=== PATIENT | female | born 1995 | race Two or more races ===

== ENCOUNTER 2023-06-06 07:18 | Inpatient (IN) | payer OTHER ==
[2023-06-06 08:44] LABS: HEMATOCRIT 35.9 % (32.4-45.2); HEMOGLOBIN 12.1 GM/dL (10.7-15.3); MCH 30.6 pg (25.7-33.7); MCHC 33.6 g/dl (32.0-36.0); MEAN CELL VOLUME 91.3 fl (80-96); MEAN PLT VOLUME 8.7 fl (7.5-11.1); PLATELET COUNT 255 10^3/uL (134-434); RBC 3.93 M/mm3 (3.60-5.2); RDW 13.5 % (11.6-15.6); WHITE BLOOD COUNT 16.4 K/mm3 (4.0-10.0)
[2023-06-06 08:54] LABS: INR 1.03 (0.83-1.09); PROTHROMBIN TIME (PATIENT) 11.9 SEC (9.7-13.0)
[2023-06-06 08:57] LABS: ACTIVATED PTT 27.3 SECONDS (25.2-36.5)
[2023-06-06 09:07] LABS: POTASSIUM 4.4 mmol/L (3.5-5.1)
[2023-06-06 09:08] LABS: CALCIUM 9.1 mg/dL (8.5-10.1)
[2023-06-06 09:09] LABS: BLOOD UREA NITROGEN 12.1 mg/dL (7-18)
[2023-06-06 09:12] LABS: CREATININE 0.7 mg/dL (0.55-1.3)
[2023-06-06] MEDS ORDERED: FENTANYL/BUPIVACAINE/NS/PF - PCEA - 50 ML DISP.SYRIN EP ONE (09:13)
[2023-06-06] MEDS ORDERED: NALOXONE HCL 0.4 MG/ML VIAL IVPUSH PRN (09:14)
[2023-06-06] MEDS ORDERED: FENTANYL/BUPIVACAINE/NS/PF - PCEA - 50 ML DISP.SYRIN EP SCH (09:15)
[2023-06-06] MEDS ORDERED: BUPIVACAINE HCL/PF 0.25% (2.5MG/ML) 10 ML VIAL ONE (09:15)
[2023-06-06] MEDS ORDERED: FENTANYL CITRATE/PF 50 MCG/ML VIAL ONE ×2 (09:15→14:06)
[2023-06-06 09:22] LABS: ANISOCYTOSIS 1+; MACROCYTOSIS 0
[2023-06-06] MEDS ORDERED: ELECTROLYTE-148 SOLN 1,000 ML IV SCH (09:45)
[2023-06-06] MEDS ORDERED: OXYTOCIN 30 UNITS in 0.9% NS 30 UNIT/500 ML INFUS.BAG IVPB SCH (09:45)
[2023-06-06 10:36] LABS: HIV INTERPRETATION NEGATIVE (NEGATIVE)
[2023-06-06 10:41] VITALS: BMI 31.8
[2023-06-06] MEDS ORDERED: OXYTOCIN 30 UNITS in 0.9% NS 30 UNIT/500 ML INFUS.BAG IVPB ONE (11:06)
[2023-06-06] MEDS ORDERED: OXYTOCIN 20 UNITS in 0.9% NS 20 UNIT/1,000 ML INFUS.BAG IV ONE (11:31)
[2023-06-06] MEDS ORDERED: BENZOCAINE 20% 57 GM BOTTLE TP PRN (12:34)
[2023-06-06] MEDS ORDERED: BENZOCAINE 28 GM HEMORRHOIDAL OINTMENT TP PRN (12:34)
[2023-06-06] MEDS ORDERED: WITCH HAZEL 50% (TUCKS) 40 PAD/JAR PAD TP PRN (12:34)
[2023-06-06] MEDS ORDERED: BISACODYL 10 MG SUPP.RECT RC PRN (12:34)
[2023-06-06] MEDS ORDERED: METHYLERGONOVINE MALEATE 0.2 MG/1 ML AMP IM PRN (12:34)
[2023-06-06] MEDS ORDERED: ACETAMINOPHEN 325 MG TABLET (FP) PO PRN (12:34)
[2023-06-06] MEDS ORDERED: oxyCODONE HCL 5 MG TABLET PO PRN (12:34)
[2023-06-06] MEDS ORDERED: OXYTOCIN 20 UNITS in 0.9% NS 20 UNIT/1,000 ML INFUS.BAG IV SCH (12:45)
[2023-06-06] MEDS: IBUPROFEN 600 MG TABLET (FP) PO PRN (20:04)
[2023-06-07] MEDS: IBUPROFEN 600 MG TABLET (FP) PO PRN ×3 (06:13→18:00)
[2023-06-07 07:46] LABS: BASO % 0.3 % (0-2.0); EOS % 0.3 % (0-4.5); HEMATOCRIT 34.2 % (32.4-45.2); HEMOGLOBIN 11.5 GM/dL (10.7-15.3); MCH 31.3 pg (25.7-33.7); MCHC 33.8 g/dl (32.0-36.0); MEAN CELL VOLUME 92.8 fl (80-96); MEAN PLT VOLUME 9.2 fl (7.5-11.1); MONO % 4.5 % (3.8-10.2); NEUT % 84.9 % (42.8-82.8); PLATELET COUNT 238 10^3/uL (134-434); RBC 3.68 M/mm3 (3.60-5.2); RDW 13.8 % (11.6-15.6); WHITE BLOOD COUNT 14.9 K/mm3 (4.0-10.0)
[2023-06-07] MEDS: FERROUS SO4 325 MG TABLET (FP) PO SCH (09:08)
[2023-06-07] MEDS: PRENATAL VITAMINS W/ FOLIC ACID TABLET (FP) PO SCH (09:08)
[2023-06-07] MEDS ORDERED: SENNOSIDES/DOCUSATE COMBO (SENNA PLUS) TABLET (UD) PO PRN (22:00)
[2023-06-08] MEDS: IBUPROFEN 600 MG TABLET (FP) PO PRN (03:45)
[2023-06-08] MEDS: PRENATAL VITAMINS W/ FOLIC ACID TABLET (FP) PO SCH (11:05)
[2023-06-08] MEDS: FERROUS SO4 325 MG TABLET (FP) PO SCH (11:05)
[2023-06-08 12:01] VITALS: BP 106/68; PULSE 85; RESP 18; TEMP 97.4
== END 2023-06-08 11:55 | disposition home or self-care (01) | DRG 560 ==
LOC: JDEL 07:18 → JLDR 08:15 → J3W 14:30
PROVIDERS: ADMIT Obstetrics & Gynecology; ATTEND Obstetrics & Gynecology
PROC: 10E0XZZ Delivery of Products of Conception, External Approach (ICD-10-PCS; principal; 2023-06-06)
PROC: 0HQ9XZZ Repair Perineum Skin, External Approach (ICD-10-PCS; 2023-06-06)
DX: O70.0 First degree perineal laceration during delivery (principal); Z3A.38 38 weeks gestation of pregnancy; Z37.0 Single live birth
CPT/HCPCS: 36415; 59025; 80048; 85025; 85610; 85730; 86780; 86850; 86900; 86901; 87389

== ENCOUNTER 2023-06-09 20:09 | Emergency (ER) | payer OTHER ==
[2023-06-09 20:16] VITALS: BP 101/65; PULSE 89; RESP 18; TEMP 98.1; BMI 30.7
[2023-06-09] MEDS ORDERED: ACETAMINOPHEN 325 MG TABLET (FP) PO ONE (21:01)
[2023-06-09] MEDS ORDERED: ACETAMINOPHEN 325 MG TABLET (FP) ONE (21:30)
[2023-06-09 21:31] LABS: EPI CELLS 27 /uL (0-25.1); HYALINE CASTS 0 /uL (0-3.1); URINE APPEARANCE CLOUDY; URINE BACTERIA 856 /uL (0-1359); URINE BILIRUBIN NEGATIVE (NEGATIVE); URINE COLOR YELLOW; URINE GLUCOSE (UA) NEGATIVE (NEGATIVE); URINE KETONE NEGATIVE (NEGATIVE); URINE LEUK ESTERASE 3+ (NEGATIVE); URINE NITRITE NEGATIVE (NEGATIVE); URINE PROTEIN 1+ (NEGATIVE); URINE RBC 729 /uL (0-23.9); URINE WBC 2652 /uL (0-25.8)
== END 2023-06-09 22:42 | disposition home or self-care (01) ==
LOC: JER 20:09
DX: O70.0 First degree perineal laceration during delivery (principal); O90.89 Other complications of the puerperium, not elsewhere classified; N39.0 Urinary tract infection, site not specified
CPT/HCPCS: 81003; 87086; 99283-25